=== PATIENT | female | born 2000 | race Caucasian/White ===

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

== ENCOUNTER 2020-04-06 23:14 | Emergency (ER) | payer MEDICAID, OTHER ==
[~2020-04-06] VITALS: Ht 157.5 cm; Wt 83.0 kg
[2020-04-06 23:23] VITALS: BP 130/79
--- NOTE | 2020-04-06 23:23 | NUR ---
to bed ambulatory
--- NOTE | 2020-04-06 23:30 | NUR ---
20 Y/O FEMALE BIB SELF FOR C/O DIFFICULTY BREATHING PER PT R/T ASTHMA FLARE UP. BREATHING WAS EVEN AND UNLABORED EVIDENCE BY RISE AND FALL. LUNG SOUNDS WERE CLEAR BILAT THROUGHOUT ON INSPIRATION AND EXPIRATION. DENIED HAVING ANY PAIN OR DISCOMFORT. PMHX: ASTHMA NKA
--- NOTE | 2020-04-06 23:35 | NUR ---
JOHNATHAN POON AT BEDSIDE EVALUATING PT.
[2020-04-06] MEDS ORDERED: methylPREDNISolone SS 125 MG/2 ML VIAL IM ONE (23:45)
[2020-04-06] MEDS ORDERED: ALBUTEROL SULFATE/IPRATROPIU 3 ML SOL IH ONE (23:45)
--- NOTE | 2020-04-06 23:53 | NUR ---
X-RAY AT BEDSIDE.
--- NOTE | 2020-04-06 23:54 | NUR ---
PT MOVED TO BED 9.
--- NOTE | 2020-04-07 00:10 | NUR ---
INFLUENZA A&B & KRISTOPHER SWABS COLLECTED AND WALKED TO LAB.
--- NOTE | 2020-04-07 00:31 | NUR ---
CALLED PHARMACY TO VERIFY ORDERS FOR EMAR DISPLAY.
[2020-04-07] MEDS ORDERED: ALBUTEROL SULFATE/IPRATROPIU 3 ML SOL IH ONE (00:49)
--- NOTE | 2020-04-07 00:53 | NUR ---
Respiratory Therapist at bedside for respiratory intervention.
--- NOTE | 2020-04-07 00:57 | NUR ---
CRITICAL LAB--- KRISTOPHER PINEDO 19 ANTIGEN (+). Addendum: 04/07/20 at [address] DILLARD GAVE NO NEW ORDERS.
--- NOTE | 2020-04-07 01:23 | NUR ---
Patient discharged with v/s stable. Written and verbal after care instructions given and explained. Patient alert, oriented and verbalized understanding of instructions. Ambulatory with steady gait. All questions addressed prior to discharge. ID band removed. Patient advised to follow up with PMD. Rx of PREDNISONE, VENTOLIN HFA, AZITHROMYCIN given. Patient educated on indication of medication including possible reaction and side effects. Opportunity to ask questions provided and answered.
[2020-04-07 01:26] VITALS: BP 130/79
== END 2020-04-07 01:26 | disposition home or self-care (01) ==
LOC: MED 23:14
DX: U07.1 COVID-19 (principal)
CPT/HCPCS: 71045; 87426; 87804; 94640; 96372; 99291; J2930

== ENCOUNTER 2020-06-15 20:03 | Emergency (ER) | payer SELFPAY ==
[~2020-06-15] VITALS: Ht 160 cm; Wt 74.8 kg
[~2020-06-15 20:03] MED LIST changes: +ALBU-118 IH; -ALBU-136 IH
[2020-06-15 20:15] VITALS: BP 139/75
--- NOTE | 2020-06-15 20:46 | NUR ---
20 Y/O FEMALE CAME TO THE ED C/O SOB. PT STATES THAT SHE HAS A HX OF ASTHAM, AND HAS ALBUTEROL HOME MED, BUT "IS NOT HELPING HER TO BREATHE BETTER". DENIES N/V/D; SKIN IS PINK/WARM/DRY; AAOX4 WITH EVEN AND STEADY GAIT; LUNGS CLEAR BL; HR EVEN AND REGULAR; PT DENIES ANY FEVER,CHILLS. PATIENT STATES PAIN OF 5/10 HEADACHE C/O SOB AT THIS TIME; VSS; PATIENT POSITIONED FOR COMFORT; HOB ELEVATED; BEDRAILS UP X2; BED DOWN. ER MD MADE AWARE OF PT STATUS. NKA PMH: ASTHMA
[2020-06-15 21:04] LABS: BASOPHILS # (AUTO) 0.1 K/uL (0.00-0.22); EOSINOPHILS # (AUTO) 0.3 K/uL (0-0.4); EOSINOPHILS % (AUTO) 4.7 % (0.0-4.0); HEMATOCRIT 36.8 % (36-48); HEMOGLOBIN 12.1 g/dL (12.0-16.0); LYMPHOCYTES # (AUTO) 1.5 K/uL (2.5-16.5); LYMPHOCYTES % (AUTO) 24.1 % (20.5-51.1); MEAN CORPUSCULAR HEMOGLOBIN 25 pg (27-31); MEAN CORPUSCULAR HGB CONC 33 g/dL (33-37); MEAN CORPUSCULAR VOLUME 75.7 fL (80-94); MONOCYTES # (AUTO) 0.7 K/uL (0.8-1.0); MONOCYTES % (AUTO) 10.7 % (1.7-9.3); NEUTROPHILS # (AUTO) 3.7 K/uL (1.8-7.7); NEUTROPHILS % (AUTO) 59.5 % (42.2-75.2); PLATELET COUNT (AUTO) 352 K/uL (140-450); RED BLOOD CELL COUNT(AUTO) 4.86 MIL/uL (4.20-5.40); RED CELL DISTRIBUTION WIDTH 15.6 % (11.6-13.7); WHITE BLOOD COUNT (AUTO) 6.2 K/uL (4.8-10.8)
[2020-06-15 21:20] LABS: ALBUMIN 3.7 g/dL (3.4-5.0); ANION GAP 11.8 (8-16); CARBON DIOXIDE 28.7 mmol/L (21-32); CREATININE 0.8 mg/dL (0.6-1.3); POTASSIUM 3.5 mmol/L (3.5-5.1); TOTAL BILIRUBIN 0.5 mg/dL (0.0-1.0)
[2020-06-15 22:02] VITALS: BP 139/75
--- NOTE | 2020-06-15 22:14 | NUR ---
Patient discharged with v/s stable. Written and verbal after care instructions given and explained. Patient verbalized understanding. Ambulatory with steady gait. All questions addressed prior to discharge. Advised to follow up with PMD.
== END 2020-06-15 22:14 | disposition home or self-care (01) ==
LOC: MED 20:03
DX: R06.00 Dyspnea, unspecified (principal); J45.909 Unspecified asthma, uncomplicated
CPT/HCPCS: 36415; 71045; 80053; 81025; 84484; 84702; 85025; 85379; 93005; 99285

== ENCOUNTER 2022-04-30 08:36 | Emergency (ER) | payer SELFPAY ==
[~2022-04-30] VITALS: Ht 162.6 cm; Wt 65.8 kg
[2022-04-30 08:41] VITALS: BP 149/80
[2022-04-30] MEDS ORDERED: predniSONE 20 MG TAB PO ONE (08:55)
[2022-04-30] MEDS ORDERED: ALBUTEROL 0.083% 2.5 MG/3 ML NEBU INH ONE ×2 (08:55→10:07)
--- NOTE | 2022-04-30 09:40 | NUR ---
22/F BIB self from home c/o intermittent SOB started last night and productive cough this morning. States Albuterol inhaler x 2 puffs last night 1000 without relief. Denies chest pain, fever, chills, SOB, headache, nausea, vomiting, sick household members, recent COVID test. PMH: asthma Meds: albuterol inhaler NKDA Sx: denies
[2022-04-30] MEDS ORDERED: PRED20TA5 PO (09:44)
[2022-04-30] MEDS ORDERED: FLUT1DSK2 IH (09:44)
[2022-04-30] MEDS ORDERED: ALBU0.0912 INH (09:44)
--- NOTE | 2022-04-30 09:45 | NUR ---
RT contacted spoke with Lisa cristobal delayed for breathing tx for nuclear medicine transport. ETA ~1015 will recontact for status
--- NOTE | 2022-04-30 10:10 | NUR ---
[facility] THERAPY AND RESPIRATORY DRUG GIVEN ORDERED ENCOUERAGED PATIENT FOR INTERMITTENT DEEP BREATHING DURING THERAPY
--- NOTE | 2022-04-30 10:38 | NUR ---
Pt states + relief after neb tx. Dr. Leyva made aware
--- NOTE | 2022-04-30 10:57 | NUR ---
Patient discharged with v/s stable. Written and verbal after care instructions given and explained. Patient alert, oriented and verbalized understanding of instructions. Ambulatory with steady gait. All questions addressed prior to discharge. ID band removed. Patient advised to follow up with PMD. Rx of PREDNISONE, ADVAIR, ALBUTEROL given. Patient educated on indication of medication including possible reaction and side effects. Opportunity to ask questions provided and answered.
== END 2022-04-30 11:00 | disposition home or self-care (01) ==
LOC: MED 08:36
DX: J45.901 Unspecified asthma with (acute) exacerbation (principal); Z79.899 Other long term (current) drug therapy
CPT/HCPCS: 94640; 99283; J7512; J7613

== ENCOUNTER 2023-10-06 19:01 | Emergency (ER) | payer SELFPAY ==
[~2023-10-06] VITALS: Ht 160 cm; Wt 87.1 kg
[~2023-10-06 19:01] MED LIST changes: +ALBU0.0912 INH; +FLUT1DSK2 IH; +PRED20TA5 PO
[2023-10-06 19:20] VITALS: BP 140/83; PULSE 88; RESP 16; TEMP 96.8; O2SAT 100
[2023-10-06] MEDS: IBUPROFEN 600 MG TAB PO ONE (20:25)
[2023-10-06] MEDS ORDERED: IBUP-2213 PO (21:19)
== END 2023-10-06 21:59 | disposition home or self-care (01) ==
LOC: MED 19:01
DX: S93.401A Sprain of unspecified ligament of right ankle, initial encounter (principal); J45.909 Unspecified asthma, uncomplicated; Z79.899 Other long term (current) drug therapy; W22.8XXA Striking against or struck by other objects, initial encounter; Y92.89 Other specified places as the place of occurrence of the external cause; Y93.89 Activity, other specified; Y99.8 Other external cause status
CPT/HCPCS: 73610; 99283